=== PATIENT | male | born 1995 | race Caucasian/White ===

== ENCOUNTER 2020-01-19 09:29 | Outpatient (CLI) | payer OTHER ==
--- NOTE | 2020-01-19 13:40 | MRI Report ---
PROCEDURE: Cervical Spine W/O INDICATIONS: NECK PAIN, BILATERAL HAND NUMBNESS TECHNIQUE: Noncontrast sagittal T1 spin echo and T2 fast spin echo, sagittal STIR, foraminal oblique sagittal T2 fast spin echo, and axial gradient echo or T2 fast spin echo through the cervical spine. COMPARISON: None. FINDINGS: Image quality: Excellent. Alignment and Curvature: There is normal bony alignment. Bone Marrow: Marrow demonstrates normal overall signal. Spinal Cord: Visualized spinal cord has normal size and signal. No cerebellar tonsillar herniation. Paraspinous Soft Tissues: No paravertebral masses. Prevertebral soft tissues are normal in thicknes s. Discs: Mild desiccation is present at C3-4, C4-5, C5-6, C6-7. C2-C3: No disc bulge, spinal stenosis or foraminal narrowing. C3-C4: No disc bulge, spinal stenosis or foraminal narrowing. C4-C5: Minimal disc bulge without spinal stenosis. Minimal right foraminal narrowing. C5-C6: No disc bulge or spinal stenosis. Minimal right foraminal narrowing. C6-C7: No disc bulge or spinal stenosis. Minimal right foraminal narrowing. C7-T1: No disc bulge, spinal stenosis or foraminal narrowing. IMPRESSION: 1. Minimal disc bulges C4-5. 2. Minimal foraminal narrowing at C4-5, C5-6 and C6-7. Reviewed by: Yenny Bruno MD on 01/19/2020 1:39 PM PST Approved by: Yenny Bruno MD on 01/19/2020 1:39 PM PST Station ID: [id number]
== END 2020-01-19 09:30 | disposition home or self-care (01) ==
LOC: DI 09:29
PROVIDERS: ATTEND Student in an Organized Health Care Education/Training Program
DX: M50.221 Other cervical disc displacement at C4-C5 level (principal); R20.0 Anesthesia of skin
CPT/HCPCS: 72141

== ENCOUNTER 2023-10-26 07:57 | Outpatient (CLI) | payer OTHER ==
--- NOTE | 2023-10-26 16:28 | MRI Report ---
PROCEDURE: Shoulder RT WO INDICATIONS: INJURY MUSCLE/TENDON OF FRONT WALL OF THORAX TECHNIQUE: Noncontrast oblique coronal T2 fast spin echo with fat saturation, oblique sagittal T1 spin echo and T2 fast spin echo with fat saturation, axial T1 spin echo and T2 fast spin echo with fat saturation t hrough the shoulder. COMPARISON: None. FINDINGS: Image quality: Excellent. Rotator cuff: Low-grade articular and bursal surface partial-thickness tear involving distal supraspi natus at its insertion on humeral head is seen extending to musculotendinous junction. Tendinosis and low-grade articular surface partial-thickness tear involving distal infraspinatus at its insertion o n humeral head is also seen. There is distal subscapularis tendinosis. No full-thickness rotator cuff tendon rupture. No rotator cuff muscle atrophy on sagittal images. Bones and bursae: No bone marrow contusions or fractures. No acromioclavicular joint degeneration. The acromion demonstrates conventional anatomy, without an os acromiale. No pathologic subacromial/ subdeltoid bursal fluid is present. Capsule and soft tissues: Initial marker is placed over anterior aspect of right shoulder. Mild luke a in the adjacent superficial portion of right deltoid muscle anterior to right humeral head is seen suggestive of low-grade muscle strain/contusion. No intramuscular mass or drainable fluid collection. There is fraying of superior anterior labrum with T2 hyperintense signal concerning for superior ant erior right glenoid labral tear. The glenohumeral ligaments appear intact. The long head of the radha ps tendon demonstrates normal location and morphology. The rotator interval appears normal, without fibrosis. The coracohumeral ligament is normal in thickness. IMPRESSION: 1. Suggestion of very mild contusion versus muscle strain involving superficial portion of right delt oid muscle anterior to the right humeral head at the site of the marker. 2. Low-grade articular and bursal surface partial-thickness tear involving distal supraspinatus exten ding to musculotendinous junction. Low-grade articular surface partial-thickness involving distal inf raspinatus. Distal subscapularis tendinosis. No full-thickness rotator cuff tendon rupture. 3. No marrow edema. No fracture or dislocation. No significant joint effusion or subacromial subdelto id bursal fluid. 4. Finding is suggestive of superior anterior right glenoid labral tear. Reviewed by: Onel Lares MD on 10/26/2023 4:26 PM PDT Approved by: Onel Lares MD on 10/26/2023 4:26 PM PDT Station ID: [id number]
== END 2023-10-26 07:58 | disposition home or self-care (01) ==
LOC: DI 07:57
PROVIDERS: ATTEND Student in an Organized Health Care Education/Training Program
DX: S29.091A Other injury of muscle and tendon of front wall of thorax, initial encounter (principal); M75.111 Incomplete rotator cuff tear or rupture of right shoulder, not specified as traumatic; R93.6 Abnormal findings on diagnostic imaging of limbs; R93.89 Abnormal findings on diagnostic imaging of other specified body structures